=== PATIENT | female | born 1965 | race Native Hawaiian/Other Pacific Islander ===

== ENCOUNTER 2022-06-06 08:32 | Outpatient (CLI) | payer OTHER | END 2022-06-06 20:11 | disposition home or self-care (01) | LOC: MAMMO 08:32 | PROVIDERS: ATTEND Family Medicine | DX: Z12.31 Encounter for screening mammogram for malignant neoplasm of breast (principal) ==

== ENCOUNTER 2022-11-21 07:21 | Outpatient (CLI) | payer OTHER | END 2022-11-21 19:09 | disposition home or self-care (01) | LOC: RAD 07:21 | PROVIDERS: ATTEND Family Medicine | DX: R07.89 Other chest pain (principal); I10 Essential (primary) hypertension; G47.00 Insomnia, unspecified; E78.49 Other hyperlipidemia; E55.9 Vitamin D deficiency, unspecified | CPT/HCPCS: 93005 ==